=== PATIENT | male | born 1995 | race Caucasian/White ===

== ENCOUNTER 2024-11-09 15:35 | Emergency (ER) | payer MEDICAID ==
[~2024-11-09] VITALS: Ht 177.8 cm; Wt 97.0 kg
[2024-11-09 15:49] VITALS: TEMP 37.1; O2SAT 99
[2024-11-09] MEDS: TETANUS, DIPHTHERIA, PERTUSSIS VAC/PF 0.5ML (>10YR OLD) IM ONE (21:11)
[2024-11-09] MEDS: LIDOCAINE HCL 1% 20ML VIAL INFIL ONE (21:13)
[2024-11-09 22:20] VITALS: BP 136/86; PULSE 51; RESP 13; O2SAT 100
== END 2024-11-09 22:22 | disposition home or self-care (01) ==
LOC: ER 15:35
DX: S61.019A Laceration without foreign body of unspecified thumb without damage to nail, initial encounter (principal); W26.0XXA Contact with knife, initial encounter; Y93.89 Activity, other specified; Y92.89 Other specified places as the place of occurrence of the external cause; Y99.8 Other external cause status
CPT/HCPCS: 90715; 12002; 90471; 99283; J2003; Z7610 ×2; A4606